=== PATIENT | male | born 2000 | race Caucasian/White ===

== ENCOUNTER 2020-07-31 14:00 | Emergency (ER) | payer MEDICAID, SELFPAY ==
[2020-07-31 14:32] VITALS: BP 161/101; PULSE 101; RESP 19; TEMP 36.8; O2SAT 97; BMI 37.3
--- NOTE | 2020-07-31 14:33 | XR_ITS ---
PROCEDURE: XR ANKLE LT MIN 3V CLINICAL INDICATION: TWISTED ANKLE Posttraumatic pain COMPARISON: No exams were available for comparison FINDINGS: There is a mildly displaced avulsion fracture involving the tip of the lateral malleolus medially. There is overlying soft tissue swelling. The ankle mortise appears intact. IMPRESSION: Avulsion fracture at the lateral malleolus with overlying soft tissue swelling Dictated by: Ivan Galicia MD 07/31/2020 15:26 Ivan Galicia MD in [place] 07/31/2020 15:26
--- NOTE | 2020-07-31 14:53 | HMH.EDUTC ---
[facility] [place] Impression: Avulsion fracture of ankle Qualifiers: Encounter type: initial encounter Fracture type: closed Laterality: left Qualified Code(s): S82.892A - Other fracture of left lower leg, initial encounter for closed fracture Disposition: Home, Self-Care Condition on Discharge: Good Instructions: Ankle Sprain, How To Perform RICE (Rest, Ice, Compress, Elevate) Additional Instructions: *weight bearing as tolerated *RICE, Rest the extremity, Ice 15-20 minutes 3-4 times daily, Compress- wear the rudy wrap as discussed as much as possible to help reduce swelling and pain, Elevate the extremity when at rest *Rudy wrap is for support and help control swelling, use it except in the shower. Be sure that is not to tight but not to loose either *Elevate when resting *Ibuprofen every 6-8 hours as needed for pain an inflammation. If need something more can take Tylenol in between doses of Ibuprofen to help Immediately follow up with your family doctor for new or worsening of symptoms, or no noticeable improvement over the next 3-5 days Return if needed Straight to ER if any life threatening symptoms Follow up with Dr Ramesh if your continue to have pain and swelling in your ankle area Prescriptions: Ibuprofen [Ibuprofen 800mg Tablet] 800 mg PO Q8HP PRN #20 tab PRN Reason: Moderate Pain Prescription Printed Referrals: Jesús Manuel [Primary Care Provider] - As needed Virgen Ramesh DPM [Staff Physician] - As needed (Call office for appointment) Forms: Work/School Release Time of Disposition: 15:00 Medical Decision Making - Benny Inquiry Pt receiving controlled substance: No Benny was queried for this patient: No Vital Signs: 07/31/20 14:32 Temperature 98.2 F Temperature Source Oral Pulse Rate [Right Brachial] 101 H Respiratory Rate 19 Blood Pressure [Right Arm] 161/101 H Blood Pressure Mean [Right Arm] 121 Blood Pressure Source [Right Arm] Automatic Cuff Blood Pressure Position [Right Arm] Sitting 02 Sat by Pulse Oximetry 97 Oxygen Delivery Method Room Air - Radiology Data #1 Image(s): Ankle Image Reviewed: Yes I reviewed the patient's radiology image avulsion fracture lateral malleolus [facility] [place] - General Stated complaint: ao fell left ankle 07/30/20 Time Seen by Provider: 07/31/20 14:53 Mode of Arrival: Ambulatory Source of Information: Patient Limitations: No Limitations Description of Symptoms (Recalled from Triage Doc. by RN): PATIENT ROLLED LEFT ANKLE YESTERDAY HEENT Symptoms (Recalled from RN notes): No Resp Symptoms (Recalled from RN notes): No Skin Symptoms (Recalled from RN notes): No MS Symptoms (Recalled from RN notes): Yes Functional Status (Recalled from RN notes): WNL - History of Present Illness Provider Complaint: Patient states he was walking through his yard when he rolled his left ankle States that ever since he has been having some swelling and pain when he walks on it or turns it certain ways States that today it was still swollen so he came in to get it checked denies any other injury - Related Data Previous Rx's Medication Instructions Recorded [id number]-[id number]-[id number] 10 ml PO Q4-6H PRN #200 ml 03/06/18 2 mg-30 mg-10 mg/5 mL oral syrup Ibuprofen [Ibuprofen 800mg 800 mg PO Q8HP PRN #20 tab 07/31/20 Tablet] Allergies Allergy/AdvReac Type Severity Reaction Status Date / Time From CHOCOLATE (FOOD/DRUG) Allergy Intermediate I-RASH Uncoded 03/06/18 15:58 PCN (PENICILLIN) Allergy Unknown Uncoded 03/06/18 15:58 - Worker's Comp Is this a Worker's Comp case?: No [facility] History - Hepatitis A Screen Drug use history?: No High risk sexual behaviors?: No History of sexually transmitted infection?: No Currently employed?: No Childcare worker?: No Do you have indoor plumbing?: Yes Do you have electricity?: Yes Attestation statement:: This patient has been screened for Hepatitis A risk factors. I have reviewed the
[2020-07-31 15:48] VITALS: BP 161/101; PULSE 101; RESP 19; TEMP 36.8; O2SAT 97
== END 2020-07-31 15:50 | disposition home or self-care (01) ==
PROVIDERS: Emergency Provider Nurse Practitioner; PCP Internal Medicine
DX: S82.65XA Nondisplaced fracture of lateral malleolus of left fibula, initial encounter for closed fracture (principal); X50.1XXA Overexertion from prolonged static or awkward postures, initial encounter; Y92.019 Unspecified place in single-family (private) house as the place of occurrence of the external cause; F17.210 Nicotine dependence, cigarettes, uncomplicated; Z88.0 Allergy status to penicillin
CPT/HCPCS: 29515; 73610; 99202

== ENCOUNTER → 2023-01-06 14:52 | Outpatient (CLI) | payer OTHER, SELFPAY ==
--- NOTE | 2023-01-06 15:05 | XR_ITS ---
FINAL REPORT CLINICAL HISTORY: R LATERAL ANKLE PAIN/SWELLING FINDINGS: RIGHT ANKLE 3 views of the right ankle were obtained. There is no acute fracture or dislocation. The mortise is intact. Visualized joint spaces are normally aligned. There is mild soft tissue swelling. An os trigonum is seen on the lateral view. IMPRESSION: No acute bony abnormality. Reviewed, Interpreted and Dictated by Juan Diego Courtney MD Transcribed by Jh Emmanuel Authenticated and [facility]
== END ==
PROVIDERS: PCP Internal Medicine; Visit Provider Internal Medicine
DX: M25.571 Pain in right ankle and joints of right foot (principal); R22.41 Localized swelling, mass and lump, right lower limb
CPT/HCPCS: 73610